=== PATIENT | male | born 1990 ===

== ENCOUNTER 2021-11-25 17:12 | Emergency (ER) | payer OTHER ==
[~2021-11-25] VITALS: Ht 180.3 cm; Wt 63.5 kg
== END 2021-11-25 19:51 | disposition home or self-care (01) ==
LOC: ED 17:12
DX: S61.012A Laceration without foreign body of left thumb without damage to nail, initial encounter (principal); W26.8XXA Contact with other sharp object(s), not elsewhere classified, initial encounter; Y93.89 Activity, other specified; Y92.89 Other specified places as the place of occurrence of the external cause; Y99.8 Other external cause status